=== PATIENT | female | born 1950 | race Caucasian/White ===

== ENCOUNTER 2016-10-24 20:18 | Emergency (ER) | payer MEDICARE ==
[~2016-10-24] VITALS: Ht 157.5 cm; Wt 72.7 kg
[2016-10-24 20:32] VITALS: BP 195/118; PULSE 101; RESP 16; O2SAT 99
--- NOTE | 2016-10-24 21:36 | ED.REPORT ---
HPI-Trauma Minor / Fall Date of Service Oct 24, 2016 ED Provider: Isaac Carrero MD The pt is a 66 y/o female presenting to the ED due to a R shoulder injury. She was here in the ED, tripped and hurt her R shoulder and L side of her face. There was no LOC. She is not experiencing any shoulder pain currently but does report chronic decreased R shoulder ROM. Nursing Notes Stated Complaint: FELL,HIT HEAD/SHOULDER Chief Complaint: R shoulder injury Nursing Notes Reviewed: Yes Allergies: Coded Allergies: No Known Allergies (Unverified , 10/24/16) General Time Seen by MD: 21:34 Chief Complaint Other (R shoulder injury ) Hx Obtained From: Patient Arrived By: Walk-in Onset Occurred: Just prior to arrival Symptom Duration: Since onset Recent Healthcare: No recent hospitalization, Recent doctor visit Similar Sx Previous: No Past Medical History Past Medical History None reported Past Surgical History None reported Smoking History Unknown if Ever Smoker Social History Other Social History: Good social support Ambulatory Status Independent Review of Systems Chronic decreased R shoulder ROM; Denies shoulder pain currently; L sided facial pain; Neurologic: Denies: Change LOC Complete sys rev & neg: except as marked. Physical Exam Initial Vital Signs Vital Signs (First) Date Time Temp Pulse Resp B/P Pulse Ox O2 Delivery O2 Flow Rate FiO2 10/24/16 20:32 36.9 101 16 195/118 99 Room Air Initial VS: Reviewed, Vital signs abnormal ENT: Mucous membranes moist, Conjunctiva normal, No scleral icterus Respiratory: Breath sounds normal, Clear to auscultation, No respiratory distress Cardiovascular: Regular rate & rhythm, Heart sounds normal, Intact distal pulses Skin: Warm, Dry, No cyanosis Neurologic: Alert, Oriented, Nonfocal Psychiatric: Mood/affect normal, Behavior normal, Normal thought content General/Constitutional: Awake, Alert Pt bel Neck: Atraumatic, Supple, Full range of motion Head / Eyes: Normocephalic Pt's glasses were bent from the fall; Small amount of swelling edema around left orbital ridge; Zygoma is non-tender and stable; Minimal swelling of L upper eyelid; No bony deformities; Remainder of head is non-tender; Upper Extremity / MS: No deformity Mild tenderness of anterior R shoulder but no specific bony tenderness; No limitations of ROM; Distal neurovascular is normal; Re-Eval/Medical Decision Med Decision/Clinical Course 66-year-old female who stumbled and fell here in the emergency room. There was no apparent fall hazard. There was no loss of consciousness. She has some minor swelling of the left lateral orbital ridge and her glasses were bent. She also has a little tenderness in the right anterior shoulder. She is not on any blood thinners. I do not feel that any imaging is required at this time. Family member with her expressed a desire for no imaging. She was given instructions for close observation and follow-up as needed per the head trauma instruction sheet. Source of Hx: Old records Counseled Regarding: Diagnosis, Need for follow-up, When/why to return to ED Discharge & Departure Impression: Primary Impression: Facial contusion Encounter type: initial encounter Qualified Code: S00.83XA - Contusion of other part of head, initial encounter Additional Impressions: Contusion of right shoulder Encounter type: initial encounter Qualified Code: S40.011A - Contusion of right shoulder, initial encounter Fall from ground level Disposition: Home Discharge Condition All VS Reviewed: Yes Condition: Stable Patient Instructions: Head Injury (ED) Additional Instructions: There is no evidence at this time of serious injury. You need to be observed closely for the next 8-12 hours. Please see head trauma instruction sheet. If you develop any problems, return to the emergency room or call me at [phone] between the hours of 9 PM and 6 AM for the next couple of nights. Referrals: [facility] (PCP) Zafar Armenta MD Scribe Attestation Portions of this note were transcribed by Anthony Rosa. I, Dr. Carrero personally performed the history, physical exam and medical decision-making; I reviewed and confirmed the accuracy of the information in the transcribed note. copies to: Zafar Armenta MD, Howard L MD Oct 24, 2016 21:36 Anthony Rosa Oct 24, 2016 22:16
[2016-10-24 22:27] VITALS: BP 148/81; PULSE 81; RESP 16; O2SAT 99
[2016-10-24 22:28] VITALS: BP 148/81; PULSE 81; RESP 16; O2SAT 99
== END 2016-10-24 22:28 | disposition home or self-care (01) ==
LOC: SED 20:18
DX: S00.83XA Contusion of other part of head, initial encounter (principal); S40.011A Contusion of right shoulder, initial encounter; W01.198A Fall on same level from slipping, tripping and stumbling with subsequent striking against other object, initial encounter; Y93.9 Activity, unspecified; Y92.9 Unspecified place or not applicable; Y99.8 Other external cause status